=== PATIENT | female | born 1985 | race Caucasian/White ===

== ENCOUNTER 2021-04-05 12:15 | Observation (INO) | payer SELFPAY ==
[~2021-04-05] VITALS: Ht 160 cm; Wt 78.0 kg
[2021-04-05] MEDS ORDERED: PREN-556 PO (14:35)
== END 2021-04-05 15:10 | disposition home or self-care (01) ==
LOC: MFCC 12:15
PROVIDERS: ADMIT Obstetrics & Gynecology; ATTEND Obstetrics & Gynecology
DX: O62.9 Abnormality of forces of labor, unspecified (principal); Z3A.29 29 weeks gestation of pregnancy
CPT/HCPCS: 59025; 81000; G0378

== ENCOUNTER 2021-04-20 08:18 | Inpatient (IN) | payer OTHER, SELFPAY ==
[~2021-04-20] VITALS: Ht 160 cm; Wt 77.1 kg
[~2021-04-20 08:18] MED LIST: PREN-556 PO
--- NOTE | 2021-04-20 08:34 | NUR ---
PATIENT HAS BEEN SCREENED AND CATEGORIZED LOW NUTRITION RISK. PATIENT WILL BE SEEN WITHIN 7 DAYS OF ADMISSION. 04/26/[address]
[2021-04-20] MEDS ORDERED: LACTATED RINGERS 1,000 ML IV SCH (08:45)
[2021-04-20] MEDS ORDERED: LACTATED RINGERS 500 ML IV SCH (08:45)
[2021-04-20] MEDS ORDERED: CLINDAMYCIN 900 MG in DEXTROSE 5% 100 ML IV SCH (08:45)
[2021-04-20 09:20] LABS: BASOPHILS % (AUTO) 0.5 % (0.0-2.0); EOSINOPHILS % (AUTO) 0.2 % (0.0-4.0); HEMATOCRIT 35.3 % (36-48); LYMPHOCYTES # (AUTO) 1.7 K/uL (2.5-16.5); LYMPHOCYTES % (AUTO) 25.7 % (20.5-51.1); MEAN CORPUSCULAR HEMOGLOBIN 32 pg (27-31); MEAN CORPUSCULAR HGB CONC 34 g/dL (33-37); MEAN CORPUSCULAR VOLUME 94.9 fL (80-94); MONOCYTES # (AUTO) 0.4 K/uL (0.8-1.0); MONOCYTES % (AUTO) 6.7 % (1.7-9.3); NEUTROPHILS # (AUTO) 4.4 K/uL (1.8-7.7); NEUTROPHILS % (AUTO) 66.9 % (42.2-75.2); PLATELET COUNT (AUTO) 184 K/uL (140-450); RED BLOOD CELL COUNT(AUTO) 3.72 MIL/uL (4.20-5.40); RED CELL DISTRIBUTION WIDTH 13.9 % (11.6-13.7); WHITE BLOOD COUNT (AUTO) 6.6 K/uL (4.8-10.8)
[2021-04-20 09:42] LABS: ALBUMIN 2.7 g/dL (3.4-5.0); ANION GAP 12.3 (8-16); CARBON DIOXIDE 21.5 mmol/L (21-32); CREATININE 0.5 mg/dL (0.6-1.3); POTASSIUM 3.8 mmol/L (3.5-5.1); TOTAL BILIRUBIN 0.4 mg/dL (0.0-1.0)
[2021-04-20 10:22] VITALS: BP 109/72
[2021-04-21 08:07] LABS: HEPATITIS B SURFACE ANTIGEN Negative (Negative)
== END 2021-04-20 14:00 | disposition home or self-care (01) | DRG 833 ==
LOC: MFCC 08:18 → OBSVTOIN 08:42
PROVIDERS: ADMIT Obstetrics & Gynecology; ATTEND Obstetrics & Gynecology
DX: O36.63X0 Maternal care for excessive fetal growth, third trimester, not applicable or unspecified (principal); Z20.822 Contact with and (suspected) exposure to COVID-19; Z3A.39 39 weeks gestation of pregnancy; Z79.899 Other long term (current) drug therapy; Z88.0 Allergy status to penicillin; Z88.2 Allergy status to sulfonamides
CPT/HCPCS: 36415; 80053; 85025; 86592; 86762; 86886; 86900; 86901; 87340; G0378; J3490; J7060

== ENCOUNTER 2021-04-23 04:58 | Inpatient (IN) | payer OTHER, SELFPAY ==
[~2021-04-23] VITALS: Ht 152.4 cm; Wt 78.0 kg
[2021-04-23] MEDS ORDERED: CITRIC ACID/SODIUM CITRATE 30 ML UDC PO SCH (06:25)
[2021-04-23] MEDS ORDERED: LACTATED RINGERS 1,000 ML IV SCH (06:25)
[2021-04-23] MEDS ORDERED: CLINDAMYCIN 900 MG in DEXTROSE 5% 100 ML IV SCH (07:05)
[2021-04-23 07:38] LABS: BASOPHILS % (AUTO) 0.2 % (0.0-2.0); EOSINOPHILS % (AUTO) 0.3 % (0.0-4.0); HEMATOCRIT 34.7 % (36-48); HEMOGLOBIN 11.8 g/dL (12.0-16.0); LYMPHOCYTES # (AUTO) 1.6 K/uL (2.5-16.5); LYMPHOCYTES % (AUTO) 22.2 % (20.5-51.1); MEAN CORPUSCULAR HEMOGLOBIN 32 pg (27-31); MEAN CORPUSCULAR HGB CONC 34 g/dL (33-37); MEAN CORPUSCULAR VOLUME 95.5 fL (80-94); MONOCYTES # (AUTO) 0.4 K/uL (0.8-1.0); MONOCYTES % (AUTO) 5.7 % (1.7-9.3); NEUTROPHILS # (AUTO) 5.1 K/uL (1.8-7.7); NEUTROPHILS % (AUTO) 71.6 % (42.2-75.2); PLATELET COUNT (AUTO) 188 K/uL (140-450); RED BLOOD CELL COUNT(AUTO) 3.63 MIL/uL (4.20-5.40); WHITE BLOOD COUNT (AUTO) 7.1 K/uL (4.8-10.8)
[2021-04-23 07:55] LABS: ALBUMIN 2.7 g/dL (3.4-5.0); ANION GAP 12.1 (8-16); CARBON DIOXIDE 23.5 mmol/L (21-32); CREATININE 0.5 mg/dL (0.6-1.3); POTASSIUM 3.6 mmol/L (3.5-5.1); TOTAL BILIRUBIN 0.3 mg/dL (0.0-1.0)
[2021-04-23 08:09] LABS: APPEARANCE,URINE CLEAR (CLEAR); BILIRUBIN,URINE NEGATIVE (NEGATIVE); BLOOD, URINE NEGATIVE (NEGATIVE); COLOR,URINE YELLOW (YELLOW); LEUKOCYTE ESTERASE ,URINE NEGATIVE (NEGATIVE); NITRITE, URINE NEGATIVE (NEGATIVE); UGLUCOSE NEGATIVE (NEGATIVE)
--- NOTE | 2021-04-23 08:13 | NUR ---
PATIENT HAS BEEN SCREENED AND CATEGORIZED LOW NUTRITION RISK. PATIENT WILL BE SEEN WITHIN 7 DAYS OF ADMISSION. 04/29/[address]
[2021-04-23] MEDS ORDERED: MIDAZOLAM 2 MG/2 ML VIAL ONE (08:14)
[2021-04-23] MEDS ORDERED: fentaNYL citrate 0.05 MG/ML VIAL ONE (08:14)
[2021-04-23] MEDS ORDERED: MORPHINE PRES FREE 10 MG/10 ML AMP IV ONE (08:15)
[2021-04-23] MEDS ORDERED: OXYTOCIN 20 UNITS/LR PREMIX 1,000 ML IV ONE ×2 (08:54→21:59)
[2021-04-23] MEDS ORDERED: fentaNYL citrate 0.05 MG/ML VIAL IVP PRN (09:15)
[2021-04-23] MEDS ORDERED: ONDANSETRON 4 MG/2 ML VIAL IVP PRN ×2 (09:15→09:20)
[2021-04-23] MEDS ORDERED: MEPERIDINE 25 MG/ML SYR IVP PRN (09:15)
[2021-04-23] MEDS ORDERED: diphenhydrAMINE 50 MG/ML VIAL IVP PRN ×2 (09:15→09:20)
[2021-04-23] MEDS ORDERED: NALOXONE 0.4 MG/ML VIAL IVP PRN ×2 (09:20)
[2021-04-23] MEDS ORDERED: METOCLOPRAMIDE 10 MG/2 ML INJ VIAL ONE (10:15)
[2021-04-23] MEDS ORDERED: BENZOCAINE/MENTHOL 20%-0.5% 60 GM CAN TP PRN (11:20)
[2021-04-23] MEDS ORDERED: OXYTOCIN 10 UNITS/ML VIAL IM PRN (11:20)
[2021-04-23] MEDS ORDERED: oxyCODONE/APAP 5/325 MG 1 TAB TAB PO PRN (11:20)
[2021-04-23] MEDS ORDERED: MEASLES, MUMPS, AND RUBELLA 1 VIAL SQVAC ONE (11:20)
[2021-04-23] MEDS ORDERED: METHYLERGONOVINE 0.2 MG/ML AMP IM PRN (11:20)
[2021-04-23] MEDS ORDERED: METHYLERGONOVINE 0.2 MG TAB PO PRN (11:20)
[2021-04-23] MEDS: KETOROLAC 30 MG/ML VIAL IM/IVP SCH ×3 (11:59→23:58)
[2021-04-23] MEDS: OXYTOCIN 20 UNITS in LACTATED RINGERS 1,000 ML IV SCH (22:05)
[2021-04-24] MEDS: KETOROLAC 30 MG/ML VIAL IM/IVP SCH (06:05)
[2021-04-24] MEDS: OXYTOCIN 20 UNITS in LACTATED RINGERS 1,000 ML IV SCH (06:06)
[2021-04-24] MEDS ORDERED: OXYTOCIN 20 UNITS/LR PREMIX 1,000 ML IV ONE (06:10)
[2021-04-24 06:44] LABS: BASOPHILS % (AUTO) 0.1 % (0.0-2.0); EOSINOPHILS % (AUTO) 0.2 % (0.0-4.0); HEMATOCRIT 31.6 % (36-48); HEMOGLOBIN 11.3 g/dL (12.0-16.0); LYMPHOCYTES # (AUTO) 1.6 K/uL (2.5-16.5); LYMPHOCYTES % (AUTO) 16.1 % (20.5-51.1); MEAN CORPUSCULAR HEMOGLOBIN 33 pg (27-31); MEAN CORPUSCULAR HGB CONC 36 g/dL (33-37); MEAN CORPUSCULAR VOLUME 93.1 fL (80-94); MONOCYTES # (AUTO) 0.7 K/uL (0.8-1.0); MONOCYTES % (AUTO) 7.4 % (1.7-9.3); NEUTROPHILS # (AUTO) 7.4 K/uL (1.8-7.7); NEUTROPHILS % (AUTO) 76.2 % (42.2-75.2); PLATELET COUNT (AUTO) 164 K/uL (140-450); RED CELL DISTRIBUTION WIDTH 13.8 % (11.6-13.7); WHITE BLOOD COUNT (AUTO) 9.7 K/uL (4.8-10.8)
[2021-04-24] MEDS ORDERED: DOCUSATE SODIUM 100 MG GELCAP PO PRN (07:35)
[2021-04-24] MEDS ORDERED: bisacodyL 5 MG TABEC PO PRN ×2 (09:15→10:00)
[2021-04-24] MEDS ORDERED: SIMETHICONE 40 MG/0.6 ML PO PRN (09:15)
[2021-04-24] MEDS: SIMETHICONE 80 MG TAB.CHEW PO PRN ×2 (10:59→18:31)
[2021-04-24] MEDS: IBUPROFEN 800 MG TAB PO PRN ×2 (11:03→23:48)
[2021-04-24] MEDS ORDERED: IBUPROFEN 800 MG TAB PO PRN (12:00)
[2021-04-24] MEDS: IBUPROFEN 600 MG TAB PO PRN (18:30)
[2021-04-24] MEDS ORDERED: CAMERA MC ONE (23:37)
[2021-04-25] MEDS: IBUPROFEN 600 MG TAB PO PRN (05:29)
[2021-04-25] MEDS ORDERED: DOCUSATE SODIUM 100 MG GELCAP PO PRN (06:50)
[2021-04-25] MEDS: SIMETHICONE 80 MG TAB.CHEW PO PRN (08:54)
[2021-04-25] MEDS ORDERED: IBUP-2213 PO (10:40)
== END 2021-04-25 15:25 | disposition home or self-care (01) | DRG 788 ==
LOC: MLD 05:08 → MFCC 10:22
PROVIDERS: ADMIT Obstetrics & Gynecology; ATTEND Obstetrics & Gynecology
PROC: 10D00Z1 Extraction of Products of Conception, Low, Open Approach (ICD-10-PCS; principal; 2021-04-23 08:30)
DX: O36.63X0 Maternal care for excessive fetal growth, third trimester, not applicable or unspecified (principal); O69.81X0 Labor and delivery complicated by cord around neck, without compression, not applicable or unspecified; Z20.822 Contact with and (suspected) exposure to COVID-19; Z3A.39 39 weeks gestation of pregnancy; Z37.0 Single live birth; Z88.0 Allergy status to penicillin; Z88.2 Allergy status to sulfonamides
CPT/HCPCS: 36415; 80053; 81003; 85025; 86592; 87653-90; 93970; J1885; J2250; J2270; J2590; J2765; J3010; J3490; J7060; J7120; Q0092